=== PATIENT | female | born 1975 | race Caucasian/White ===

== ENCOUNTER → 2016-06-07 | Outpatient (CLI) | payer BC, OTHER ==
--- NOTE | 2016-06-07 11:54 | REPMRS ---
Patient History The patient states she had a clinical breast exam in Family history of breast cancer in mother at age 50. Digital Woman Screen Mammo: June 07, 2016 - Exam #: [id number] Bilateral CC and MLO view(s) were taken. Technologist: Sujata Charlton, Technologist Prior study comparison: June 15, 2015, digital woman screen mammo performed at [facility]. May 28, 2014, digital woman screen mammo performed at [facility]. May 17, 2013, digital woman screen mammo performed at [facility]. FINDINGS: The breast tissue is heterogeneously dense. This may lower the sensitivity of mammography. There is a moderate amount of heterogeneously dense fibroglandular tissue which is fairly symmetric. There is no interval development of dominant mass, architectural distortion, or clustered microcalcification typical of malignancy. There has been no change in the appearance of the mammogram from the prior studies. ASSESSMENT: BI-RADS/ACR category 1 mammogram. Negative. Recommendation Routine screening mammogram of both breasts in 1 year (for women over age 40). This mammogram was interpreted with the aid of an FDA-approved computer-aided dectection system. Electronically Signed By: Dwain Hodge MD 06/07/16 [id number]
== END ==
LOC: M WHC 10:23
PROVIDERS: ATTEND Obstetrics & Gynecology
DX: Z12.31 Encounter for screening mammogram for malignant neoplasm of breast (principal)

== ENCOUNTER → 2017-01-04 | Outpatient (REF) | payer BC, OTHER ==
[~2017-01-04] MED LIST: CYMB1CAP5 PO; HAIRTAB5 PO; HYDR-3716 PO; KETO10TAB PO; LEVOTAB10 PO; MACR100C43 PO; PROBCAP14 PO; ZOFR4TAB3 PO
[2017-01-04 17:38] LABS: CALCIUM LEVEL 8.8 MG/DL (8.5-10.1); URIC ACID 4.6 MG/DL (2.6-6.0)
== END ==
LOC: M LAB REF 10:31
PROVIDERS: ATTEND Urology
DX: N20.0 Calculus of kidney (principal)

== ENCOUNTER → 2017-01-04 | Outpatient (REF) | payer BC, OTHER ==
[2017-01-04 17:48] LABS: ALBUMIN 3.6 GM/DL (3.2-5.2); ALBUMIN/GLOBULIN RATIO 1.03 (1.00-1.93); ALKALINE PHOSPHATASE 92 U/L (45-117); ALT/SGPT 35 U/L (12-78); ANION GAP 10 MEQ/L (8-16); AST/SGOT 21 U/L (15-37); BILIRUBIN,TOTAL 0.3 MG/DL (0.2-1.0); BLOOD UREA NITROGEN 10 MG/DL (7-18); CALCIUM LEVEL 8.6 MG/DL (8.5-10.1); CARBON DIOXIDE LEVEL 25 MEQ/L (21-32); CHLORIDE LEVEL 106 MEQ/L (98-107); CHOLESTEROL LEVEL 270 MG/DL (<200); CREATININE FOR GFR 0.74 MG/DL (0.55-1.02); FREE T4 0.92 NG/DL (0.76-1.46); GLOMERULAR FILTRATION RATE > 60.0 (>58); GLUCOSE, FASTING 94 MG/DL (70-105); POTASSIUM SERUM 4.4 MEQ/L (3.5-5.1); SODIUM LEVEL 141 MEQ/L (136-145); TOTAL PROTEIN 7.1 GM/DL (6.4-8.2); TRIGLYCERIDES LEVEL 127 MG/DL (<150)
== END ==
LOC: M SFHCCLAY 10:19
PROVIDERS: ATTEND Family Medicine
DX: R63.5 Abnormal weight gain (principal)

== ENCOUNTER 2017-01-20 14:35 | Emergency (ER) | payer BC, OTHER ==
[~2017-01-20] VITALS: Ht 167.6 cm; Wt 91.4 kg
[~2017-01-20 14:35] MED LIST changes: -KETO10TAB PO; -ZOFR4TAB3 PO
[2017-01-20] MEDS ORDERED: KETOROLAC 30 MG/ML VIAL (J1885) IV ONE (15:00)
[2017-01-20] MEDS ORDERED: NS 1,000 ML IV ONE (15:00)
[2017-01-20] MEDS ORDERED: MORPHINE 4 MG/ML 1ML SYRINGE IV PRN (15:00)
[2017-01-20] MEDS ORDERED: ONDANSETRON 4MG/2ML VIAL (J2405) IV ONE (15:00)
[2017-01-20 15:23] LABS: BASO % 0.2 % (0.0-1.0); EOS # 0.2 K/mm3 (0.0-0.50); EOS % 1.4 % (0.0-3.0); LARGE UNSTAINED CELL # 0.1 K/mm3 (0.0-0.4); LARGE UNSTAINED CELL % 1.1 % (0.0-4.0); LYMPH # 1.6 K/mm3 (1.5-4.5); LYMPH % 13.6 % (24.0-44.0); MEAN CORPUSCULAR VOLUME 91.5 fl (80.0-96.0); MONO # 0.5 K/mm3 (0.0-0.8); NEUTROPHILS # 9.4 K/mm3 (1.8-7.7); NEUTROPHILS % 79.6 % (36.0-66.0); PLATELET COUNT, AUTOMATED 394 k/mm3 (150-450); RED CELL DISTRIBUTION WIDTH 12.6 % (11.5-14.5); WHITE BLOOD COUNT 11.8 K/mm3 (4.0-10.0)
[2017-01-20 15:47] LABS: ALBUMIN/GLOBULIN RATIO 1.11 (1.00-1.93); ALKALINE PHOSPHATASE 110 U/L (45-117); ALT/SGPT 30 U/L (12-78); ANION GAP 10 MEQ/L (8-16); AST/SGOT 20 U/L (15-37); BILIRUBIN,DIRECT 0.1 MG/DL (0.0-0.2); BILIRUBIN,TOTAL 0.4 MG/DL (0.2-1.0); BLOOD UREA NITROGEN 13 MG/DL (7-18); CALCIUM LEVEL 8.9 MG/DL (8.5-10.1); CARBON DIOXIDE LEVEL 21 MEQ/L (21-32); CHLORIDE LEVEL 108 MEQ/L (98-107); CREATININE FOR GFR 0.81 MG/DL (0.55-1.02); GLOMERULAR FILTRATION RATE > 60.0 (>58); GLUCOSE, FASTING 129 MG/DL (70-105); POTASSIUM SERUM 4.1 MEQ/L (3.5-5.1); SODIUM LEVEL 139 MEQ/L (136-145); TOTAL PROTEIN 7.6 GM/DL (6.4-8.2)
--- NOTE | 2017-01-20 15:55 | REP ---
CT of the abdomen pelvis without IV and oral contrast: Comparison is 10/22/2016. 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 Within this extrarenal pelvis. There is a 12 mm calculus. These findings are unchanged. There is mild left renal hydronephrosis. This is also unchanged. There is no dilatation of the left ureter. There are least three other nonobstructive left renal calculi, each measuring approximate 5 mm in diameter. There was only one other nonobstructive left renal calculus previously. There are no right renal calculi. There is no right hydronephrosis. The right ureter is nondilated. The visualized lung [place] are unremarkable. The unenhanced hepatic parenchyma, gallbladder, pancreas and spleen are unremarkable. The abdominal aorta, bowel and mesentery are unremarkable. Pelvis: There is a hysterectomy. There is a surgical clip in the midline of the vaginal stump. This is unchanged. The adnexa are unremarkable. There are no bladder calculi. There is no adenopathy or ascites. The pelvic bowel loops are unremarkable. Impression: There is a 12 mm calculus within the left renal pelvis. 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 There are least three other nonobstructive left renal calculi measuring approximate 5 mm in diameter each. There is mild left hydronephrosis. This is unchanged. No calculus or hydronephrosis on the right. Signed by Joseph Mcclendon MD 01/20/2017 03:47 P
[2017-01-20] MEDS ORDERED: KETO10TAB PO (17:24)
[2017-01-20] MEDS ORDERED: ZOFR4TAB3 PO (17:24)
[2017-01-20 17:47] VITALS: BP 130/92
== END 2017-01-20 17:48 | disposition home or self-care (01) ==
LOC: M ED 14:35
DX: N20.1 Calculus of ureter (principal); Z87.442 Personal history of urinary calculi; Z88.1 Allergy status to other antibiotic agents; Z88.2 Allergy status to sulfonamides
CPT/HCPCS: 74176; 80048; 80076; 81001; 83690; 85025; 96361; 96374; 96375; 99283; J1885; J2405

== ENCOUNTER → 2017-02-15 | Outpatient (CLI) | payer BC, OTHER ==
[~2017-02-15] MED LIST changes: +KETO10TAB PO; +ZOFR4TAB3 PO
--- NOTE | 2017-02-15 10:38 | REP ---
ULTRASOUND LEFT AXILLA: Real-time sonographic evaluation of the left axilla is performed prior to a scheduled biopsy of a nodule previously identified at an outside institution. At the site of the palpable abnormality in the left axilla, where there is also pain, no cystic or solid nodule is visualized. The biopsy is not performed. Signed by Joseph Jones MD 02/15/2017 01:01 P
== END ==
LOC: M RADPRO 09:05
PROVIDERS: ATTEND Surgery
DX: R22.9 Localized swelling, mass and lump, unspecified (principal); Z88.8 Allergy status to other drugs, medicaments and biological substances; Z88.2 Allergy status to sulfonamides; Z96.89 Presence of other specified functional implants; Z79.899 Other long term (current) drug therapy

== ENCOUNTER → 2017-03-30 | Outpatient (REF) | payer BC, OTHER | LOC: M LAB REF 18:57 | PROVIDERS: ATTEND Surgery | DX: D17.1 Benign lipomatous neoplasm of skin and subcutaneous tissue of trunk (principal) ==

== ENCOUNTER → 2017-05-05 | Outpatient (CLI) | payer BC, OTHER ==
[2017-05-05 17:14] LABS: BASO % 0.3 % (0.0-1.0); EOS # 0.1 10^3/uL (0.0-0.50); EOS % 1.3 % (0.0-3.0); HEMATOCRIT 42.3 % (36.0-47.0); HEMOGLOBIN 13.7 g/dl (12.0-16.0); IMMATURE GRANULOCYTE % 0.3 % (0-0); LYMPH # 2.3 10^3/uL (1.5-4.5); LYMPH % 22.6 % (24.0-44.0); MEAN CORPUSCULAR HEMOGLOBIN 29.5 pg (27.0-33.0); MEAN CORPUSCULAR HGB CONC 32.4 g/dl (32.0-36.5); MEAN CORPUSCULAR VOLUME 91.2 fl (80.0-96.0); MONO # 0.6 10^3/uL (0.0-0.8); MONO % 6.2 % (0.0-5.0); NEUTROPHILS # 6.9 10^3/uL (1.8-7.7); NEUTROPHILS % 69.3 % (36.0-66.0); PLATELET COUNT, AUTOMATED 328 10^3/uL (150-450); RED BLOOD COUNT 4.64 10^6/uL (4.00-5.40); RED CELL DISTRIBUTION WIDTH 13.5 % (11.5-14.5)
[2017-05-05 18:32] LABS: ANION GAP 9 MEQ/L (8-16); BLOOD UREA NITROGEN 17 MG/DL (7-18); CALCIUM LEVEL 8.5 MG/DL (8.5-10.1); CARBON DIOXIDE LEVEL 23 MEQ/L (21-32); CHLORIDE LEVEL 108 MEQ/L (98-107); CREATININE FOR GFR 0.91 MG/DL (0.55-1.02); GLOMERULAR FILTRATION RATE > 60.0 (>58); GLUCOSE, FASTING 90 MG/DL (70-105); POTASSIUM SERUM 4.5 MEQ/L (3.5-5.1); SODIUM LEVEL 140 MEQ/L (136-145)
[2017-05-05 19:20] LABS: AMORPHOUS SEDIMENT LARGE (NEGATIVE); APPEARANCE, URINE TURBID (CLEAR); BACTERIA, URINE AUTO 1+ (NEGATIVE); BILIRUBIN, URINE AUTO NEGATIVE (NEGATIVE); BLOOD, URINE BLOOD 3+ (NEGATIVE); COLOR, URINE YELLOW (YELLOW); GLUCOSE, URINE (UA) AUTO NEGATIVE (NEGATIVE); KETONE, URINE AUTO NEGATIVE (NEGATIVE); LEUKOCYTE ESTERASE, URINE AUTO 1+ (NEGATIVE); MUCUS, URINE SMALL (NEGATIVE); NITRITE, URINE AUTO NEGATIVE (NEGATIVE); PROTEIN, URINE AUTO 1+ mg/dL (NEGATIVE); RBC, URINE AUTO 83 /HPF (0-3); SPECIFIC GRAVITY URINE AUTO 1.025 (1.002-1.035); SQUAMOUS EPITHELIAL CELL UR AU 2 /HPF (0-6); UROBILINOGEN, URINE AUTO 0.2 mg/dL (0.0-2.0); WBC, URINE AUTO 26 /HPF (0-3)
== END ==
LOC: M WUC 14:18
DX: R82.99 Other abnormal findings in urine (principal); R79.9 Abnormal finding of blood chemistry, unspecified
CPT/HCPCS: 80048

== ENCOUNTER → 2017-05-05 | Outpatient (CLI) | payer BC, OTHER | LOC: M WUC 14:22 | DX: N20.0 Calculus of kidney (principal) | CPT/HCPCS: 74018 ==

== ENCOUNTER → 2017-05-31 | Outpatient (CLI) | payer BC, OTHER | LOC: M WUC 11:26 | DX: N20.0 Calculus of kidney (principal) ==

== ENCOUNTER → 2017-07-06 | Outpatient (CLI) | payer BC | LOC: M WHC 15:19 | DX: Z12.31 Encounter for screening mammogram for malignant neoplasm of breast (principal); R92.8 Other abnormal and inconclusive findings on diagnostic imaging of breast; Z80.3 Family history of malignant neoplasm of breast; Z98.890 Other specified postprocedural states | CPT/HCPCS: 77067 ==

== ENCOUNTER → 2018-01-03 | Outpatient (CLI) | payer BC | LOC: M WUC 10:22 | DX: N20.0 Calculus of kidney (principal) | CPT/HCPCS: 74018 ==

== ENCOUNTER → 2018-01-24 | Outpatient (CLI) | payer BC | LOC: M WUC 16:00 | DX: N20.0 Calculus of kidney (principal) | CPT/HCPCS: 74018 ==

== ENCOUNTER → 2018-03-15 | Outpatient (CLI) | payer BC ==
[2018-03-15 20:25] LABS: ANION GAP 9 MEQ/L (8-16); BLOOD UREA NITROGEN 14 MG/DL (7-18); CALCIUM LEVEL 8.9 MG/DL (8.5-10.1); CARBON DIOXIDE LEVEL 28 MEQ/L (21-32); CHLORIDE LEVEL 103 MEQ/L (98-107); CREATININE FOR GFR 0.89 MG/DL (0.55-1.30); GLOMERULAR FILTRATION RATE > 60.0 (>58); GLUCOSE, FASTING 92 MG/DL (70-100); POTASSIUM SERUM 3.8 MEQ/L (3.5-5.1); SODIUM LEVEL 140 MEQ/L (136-145)
== END ==
LOC: M WUC 17:50
DX: N20.0 Calculus of kidney (principal)
CPT/HCPCS: 80048

== ENCOUNTER → 2018-07-07 | Outpatient (REF) | payer BC ==
[~2018-07-07] MED LIST changes: +ZOFR4TAB14 PO; -ZOFR4TAB3 PO
== END ==
LOC: M LAB REF 13:19
PROVIDERS: ATTEND Physician Assistant
DX: J02.9 Acute pharyngitis, unspecified (principal)

== ENCOUNTER → 2018-07-10 | Outpatient (CLI) | payer BC ==
--- NOTE | 2018-07-10 20:18 | REPMRS ---
Patient History The patient states she had a clinical breast exam in 06/2018. Family history of breast cancer at age 50 in mother. Benign excisional biopsy of the left breast, March 2017. No Hormone Replacement Therapy Digital Woman Screen Mammo: July 10, 2018 - Exam #: [id number] Bilateral CC and MLO view(s) were taken. Technologist: Marisa Moura, Technologist Prior study comparison: July 06, 2017, digital woman screen mammo performed at [facility]. June 07, 2016, digital woman screen mammo performed at [facility]. FINDINGS: The breast tissue is heterogeneously dense. This may lower the sensitivity of mammography. There has been no change in the appearance of the mammogram from the prior studies. There is a moderate amount of residual fibroglandular tissue which is fairly symmetric. There is no interval development of dominant mass, architectural distortion, or clustered microcalcification typical of malignancy. Scattered lymph nodes are seen in the right axilla. 3-D tomosynthesis shows no additional findings. No significant changes when compared with prior studies. Assessment: BI-RADS/ACR category 2 mammogram. Benign Findings. Recommendation Routine screening mammogram in 1 year (for women over age 40). This mammogram was interpreted with the aid of an FDA-approved computer-aided dectection system. A. Negative x-ray reports should not delay biopsy if a dominant or clinically suspicious mass is present. B. Four to eight percent of cancers are not identified by mammography. C. Adenosis and dense breast may obscure an underlying neoplasm. Electronically Signed By: Cleve Patricio MD 07/10/18 2018
== END ==
LOC: M WHC 16:18
PROVIDERS: ATTEND Obstetrics & Gynecology
DX: Z12.31 Encounter for screening mammogram for malignant neoplasm of breast (principal); Z80.3 Family history of malignant neoplasm of breast; Z86.018 Personal history of other benign neoplasm

== ENCOUNTER → 2018-09-10 | Outpatient (REF) | payer BC ==
[2018-09-10 16:51] LABS: BASO % 0.4 % (0.0-1.0); EOS # 0.1 10^3/uL (0.0-0.50); EOS % 1.5 % (0.0-3.0); HEMATOCRIT 40.4 % (36.0-47.0); HEMOGLOBIN 13.2 g/dl (12.0-15.5); LYMPH # 1.8 10^3/uL (1.5-4.5); LYMPH % 24.9 % (24.0-44.0); MEAN CORPUSCULAR HEMOGLOBIN 30.3 pg (27.0-33.0); MEAN CORPUSCULAR HGB CONC 32.7 g/dl (32.0-36.5); MEAN CORPUSCULAR VOLUME 92.9 fl (80.0-96.0); MONO # 0.5 10^3/uL (0.0-0.8); MONO % 6.6 % (0.0-5.0); NEUTROPHILS # 4.7 10^3/uL (1.8-7.7); NEUTROPHILS % 66.5 % (36.0-66.0); PLATELET COUNT, AUTOMATED 300 10^3/uL (150-450); RED BLOOD COUNT 4.35 10^6/uL (4.00-5.40); WHITE BLOOD COUNT 7.1 10^3/uL (4.0-10.0)
[2018-09-10 18:04] LABS: IMMUNOGLOBULIN G 1100 MG/DL (681-1648); RUBELLA IgG QUALITATIVE IMMUNE (IMMUNE)
[2018-09-10 18:05] LABS: IMMUNOGLOBULIN E < 3.6 IU/ML (<100)
[2018-09-17 14:16] LABS: ANTI TETANUS ANTIBODY 0.52 IU/mL (<0.10); IMMUNOGLOBULIN D 2.28 mg/dL (<14.11); STREP PNEUMO TYPE 1 1.9 ug/mL (>1.3); STREP PNEUMO TYPE 12F 1.1 ug/mL (>1.3); STREP PNEUMO TYPE 14 0.2 ug/mL (>1.3); STREP PNEUMO TYPE 18C 1.6 ug/mL (>1.3); STREP PNEUMO TYPE 19A 0.4 ug/mL (>1.3); STREP PNEUMO TYPE 19F 0.3 ug/mL (>1.3); STREP PNEUMO TYPE 23F >14.4 ug/mL (>1.3); STREP PNEUMO TYPE 3 0.3 ug/mL (>1.3); STREP PNEUMO TYPE 4 0.2 ug/mL (>1.3); STREP PNEUMO TYPE 7F 1.2 ug/mL (>1.3); STREP PNEUMO TYPE 8 0.1 ug/mL (>1.3); STREP PNEUMO TYPE 9N 3.1 ug/mL (>1.3); STREP PNEUMO TYPE 9V 0.7 ug/mL (>1.3)
== END ==
LOC: M LABDRAWC 16:21
PROVIDERS: ATTEND Allergy & Immunology Allergy
DX: J30.89 Other allergic rhinitis (principal); D84.9 Immunodeficiency, unspecified

== ENCOUNTER → 2018-11-08 | Outpatient (REF) | payer BC ==
[2018-11-14 14:07] LABS: STREP PNEUMO TYPE 1 2.5 ug/mL (>1.3); STREP PNEUMO TYPE 12F 2.1 ug/mL (>1.3); STREP PNEUMO TYPE 14 0.3 ug/mL (>1.3); STREP PNEUMO TYPE 18C 2.2 ug/mL (>1.3); STREP PNEUMO TYPE 19A 0.5 ug/mL (>1.3); STREP PNEUMO TYPE 19F 0.3 ug/mL (>1.3); STREP PNEUMO TYPE 23F >14.4 ug/mL (>1.3); STREP PNEUMO TYPE 3 0.4 ug/mL (>1.3); STREP PNEUMO TYPE 4 0.4 ug/mL (>1.3); STREP PNEUMO TYPE 6B 8.4 ug/mL (>1.3); STREP PNEUMO TYPE 7F 1.3 ug/mL (>1.3); STREP PNEUMO TYPE 8 0.3 ug/mL (>1.3); STREP PNEUMO TYPE 9N 5.9 ug/mL (>1.3)
== END ==
LOC: M LABDRAWC 11:46
PROVIDERS: ATTEND Allergy & Immunology Allergy
DX: D84.9 Immunodeficiency, unspecified (principal)

== ENCOUNTER → 2018-12-05 | Outpatient (CLI) | payer BC ==
--- NOTE | 2018-12-05 16:58 | REP ---
MAXILLOFACIAL CT WITHOUT CONTRAST: HISTORY: Sinusitis. The patient is status-post bilateral uncinectomy and bilateral partial ethmoidectomy. The sinuses are clear. The middle and inferior nasal turbinates are partially paradoxical. There is minimal deviation of the nasal septum to the left. The cribriform plate, medial mars of the orbits and optic canals are intact. The carotid canals form a segment of the posterolateral mars of the sphenoid sinus. IMPRESSION: 1. Postsurgical change as described above. 2. There is no acute or chronic sinusitis. Electronically Signed by Keo Boland MD 12/05/2018 06:08 P
== END ==
LOC: M RAD 13:24
PROVIDERS: ATTEND Allergy & Immunology Allergy
DX: J30.89 Other allergic rhinitis (principal); D84.9 Immunodeficiency, unspecified

== ENCOUNTER → 2019-01-23 | Outpatient (REF) | payer BC ==
[2019-01-23 17:23] LABS: BASO % 0.3 % (0.0-1.0); EOS # 0.1 10^3/uL (0.0-0.5); EOS % 0.9 % (0.0-3.0); HEMATOCRIT 43.6 % (36.0-47.0); LYMPH % 21.8 % (24.0-44.0); MEAN CORPUSCULAR HEMOGLOBIN 30.6 pg (27.0-33.0); MEAN CORPUSCULAR HGB CONC 32.1 g/dl (32.0-36.5); MEAN CORPUSCULAR VOLUME 95.4 fl (80.0-96.0); MONO # 0.5 10^3/uL (0.0-0.8); MONO % 5.2 % (0.0-5.0); NEUTROPHILS # 6.5 10^3/uL (1.5-8.5); NEUTROPHILS % 71.4 % (36.0-66.0); PLATELET COUNT, AUTOMATED 335 10^3/uL (150-450); RED BLOOD COUNT 4.57 10^6/uL (4.00-5.40)
[2019-01-23 17:27] LABS: ALBUMIN 3.9 GM/DL (3.2-5.2); ALT/SGPT 20 U/L (12-78); BILIRUBIN,TOTAL 0.7 MG/DL (0.2-1.0); BLOOD UREA NITROGEN 11 MG/DL (7-18); CALCIUM LEVEL 9.2 MG/DL (8.5-10.1); CARBON DIOXIDE LEVEL 26 MEQ/L (21-32); CHLORIDE LEVEL 104 MEQ/L (98-107); CHOLESTEROL LEVEL 230 MG/DL (<200); CHOLESTEROL RISK RATIO 4.339 (<5); CREATININE FOR GFR 0.84 MG/DL (0.55-1.30); FREE T4 0.99 NG/DL (0.76-1.46); GLOMERULAR FILTRATION RATE > 60.0 (>58); GLUCOSE, FASTING 103 MG/DL (70-100); HDL CHOLESTEROL 53 MG/DL (>40); LDL CHOLESTEROL 152 MG/DL (<100); NON-HDL-C 177 MG/DL; POTASSIUM SERUM 4.5 MEQ/L (3.5-5.1); SODIUM LEVEL 138 MEQ/L (136-145); TOTAL PROTEIN 7.5 GM/DL (6.4-8.2); TRIGLYCERIDES LEVEL 124 MG/DL (<150)
== END ==
LOC: M SFHCCLAY 10:53
PROVIDERS: ATTEND Nurse Practitioner Family
DX: R63.5 Abnormal weight gain (principal); F32.9 Major depressive disorder, single episode, unspecified; R03.0 Elevated blood-pressure reading, without diagnosis of hypertension

== ENCOUNTER → 2019-07-15 | Outpatient (CLI) | payer BC, OTHER ==
--- NOTE | 2019-07-15 11:23 | REPMRS ---
Patient History The patient states she had a clinical breast exam in 06/2019. Family history of breast cancer at age 50 in mother. Benign excisional biopsy of the left breast, March 2017. No Hormone Replacement Therapy 3D TOMOSYNTHESIS WAS PERFORMED. Digital Woman Screen Mammo: July 15, 2019 - Exam #: [id number] Bilateral CC and MLO view(s) were taken. Technologist: Marisa Moura, Technologist Prior study comparison: July 10, 2018, bilateral digital woman screen mammo performed at [facility]. July 06, 2017, digital woman screen mammo performed at [facility]. FINDINGS: The breast tissue is heterogeneously dense. This may lower the sensitivity of mammography. There has been no change in the appearance of the mammogram from the prior studies. There is a moderate amount of residual fibroglandular tissue which is fairly symmetric. There is no interval development of dominant mass, areas of architectural distortion, or clustered microcalcification typical of malignancy. Assessment: BI-RADS/ACR category 1 mammogram. Negative Mammogram. Recommendation Routine screening mammogram in 1 year (for women over age 40). This mammogram was interpreted with the aid of an FDA-approved computer-aided dectection system. THE LIFETIME RISK OF BREAST CANCER IS 20.4%, THEREFORE SUPPLEMENTAL SCREENING MRI OF THE BREASTS IS RECOMMENDED IN 6 MONTHS. Electronically Signed By: Joseph Jones MD 07/15/19 [id number]
== END ==
LOC: M WHC 09:48
PROVIDERS: ATTEND Nurse Practitioner Women's Health
DX: Z12.31 Encounter for screening mammogram for malignant neoplasm of breast (principal); Z80.3 Family history of malignant neoplasm of breast

== ENCOUNTER → 2019-07-15 | Outpatient (CLI) | payer BC, OTHER | LOC: M PLALAB 11:03 | PROVIDERS: ATTEND Nurse Practitioner Women's Health | DX: Z13.79 Encounter for other screening for genetic and chromosomal anomalies (principal); Z80.3 Family history of malignant neoplasm of breast ==

== ENCOUNTER → 2020-01-13 | Outpatient (CLI) | payer BC, OTHER ==
--- NOTE | 2020-01-28 16:32 | REP ---
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 Benign Lipomatous neoplasm of the skin and subcutaneous region. FINDINGS: Bilateral axillary soft tissue sonography shows no evidence of mass, adenopathy, cyst, or fluid collection. IMPRESSION: BI-RADS Category 2 benign bilaterally axillary sonography. Clinical follow-up is advised. DARRELL
== END ==
LOC: M RAD 11:35
PROVIDERS: ATTEND Surgery
DX: N60.22 Fibroadenosis of left breast (principal); D17.1 Benign lipomatous neoplasm of skin and subcutaneous tissue of trunk

== ENCOUNTER → 2020-03-10 | Outpatient (CLI) | payer BC, OTHER ==
[~2020-03-10] MED LIST changes: +PROHANCE 279.3MG/ML 15ML VIAL As Ordered ONE; +PROHANCE 279.3MG/ML 5ML VIAL As Ordered ONE
--- NOTE | 2020-03-10 18:36 | REP ---
INDICATION: LT AXILLARY PAIN H/O RISK, HIGH RISK FOR BREAST CA. COMPARISON: Comparison mammography and axillary sonography July 15, 2019 and January 13, 2020 respectively. TECHNIQUE: Three Magalie MRI imaging was performed with a dedicated breast coil. Axial, coronal, and sagittal T1 and T2 weighted scans were obtained with and without fat saturation in the usual fashion. The study includes dynamically acquired post gadolinium-enhanced imaging with image subtraction. Maximum intensity projection and multi planar reformation imaging is included as well. This study is interpreted with the aid of [employer], an FDA approved computer aided detection (CAD) software program, on a dedicated breast MRI workstation. The gadolinium enhancement dose is 20 mL of intravenous ProHance. FINDINGS: There is a moderate pattern of fibroglandular tissue bilaterally corresponding with the dense breast tissue mammographically. T2 weighted scans show no evidence of axillary lymphadenopathy on either side. There is a moderate pattern of multifocal punctate background parenchymal enhancement bilaterally. There are 2 identifiable cysts in the central left breast. The more posterior of these measures 10 mm and the more anterior 12 mm in greatest diameter. There is no significant contrast enhancement associated with either of these. No other significant morphologic abnormality is seen on high-resolution pre or postcontrast images. Dynamically acquired post contrast images show no suspicious focus of enhancement and washout in either breast to suggest malignancy. IMPRESSION: BI-RADS category 2 benign findings. Patients whose estimated lifetime breast cancer risk is greater than 20% merit annual screening MRI in addition annual screening mammography. <Electronically signed by Dwain Hodge > 03/10/20 [id number]
== END ==
LOC: M RAD 14:43
PROVIDERS: ATTEND Surgery
DX: Z91.89 Other specified personal risk factors, not elsewhere classified (principal)

== ENCOUNTER → 2020-06-29 | Outpatient (REF) | payer BC, OTHER ==
[~2020-06-29] MED LIST changes: +OMEG1CAP16 PO; -PROHANCE 279.3MG/ML 15ML VIAL As Ordered ONE; -PROHANCE 279.3MG/ML 5ML VIAL As Ordered ONE; +TURM500C PO; +VITA250C5 PO; +VITA500030 PO; +VITA500064 PO
[2020-06-29 17:51] LABS: BASO % 0.1 % (0.0-1.0); EOS # 0.1 10^3/uL (0.0-0.5); EOS % 1.3 % (0.0-3.0); HEMATOCRIT 41.3 % (36.0-47.0); HEMOGLOBIN 12.9 g/dl (12.0-15.5); LYMPH # 1.9 10^3/uL (1.5-5.0); LYMPH % 26.8 % (24.0-44.0); MEAN CORPUSCULAR HEMOGLOBIN 29.7 pg (27.0-33.0); MEAN CORPUSCULAR HGB CONC 31.2 g/dl (32.0-36.5); MEAN CORPUSCULAR VOLUME 95.2 fl (80.0-96.0); MONO # 0.4 10^3/uL (0.0-0.8); MONO % 5.8 % (2.0-8.0); NEUTROPHILS # 4.6 10^3/uL (1.5-8.5); NEUTROPHILS % 65.9 % (36.0-66.0); PLATELET COUNT, AUTOMATED 321 10^3/uL (150-450); RED BLOOD COUNT 4.34 10^6/uL (4.00-5.40); WHITE BLOOD COUNT 6.9 10^3/uL (4.0-10.0)
[2020-06-29 18:23] LABS: ALBUMIN 3.9 GM/DL (3.2-5.2); ALT/SGPT 51 U/L (12-78); BILIRUBIN,TOTAL 0.3 MG/DL (0.2-1.0); BLOOD UREA NITROGEN 12 MG/DL (7-18); CALCIUM LEVEL 8.9 MG/DL (8.5-10.1); CARBON DIOXIDE LEVEL 27 MEQ/L (21-32); CHLORIDE LEVEL 107 MEQ/L (98-107); CREATININE FOR GFR 0.86 MG/DL (0.55-1.30); GLOMERULAR FILTRATION RATE > 60.0 (>58); GLUCOSE, FASTING 96 MG/DL (70-100); POTASSIUM SERUM 4.3 MEQ/L (3.5-5.1); SODIUM LEVEL 138 MEQ/L (136-145); TOTAL PROTEIN 7.2 GM/DL (6.4-8.2)
== END ==
LOC: M SFHCCLAY 09:06
PROVIDERS: ATTEND Nurse Practitioner Family
DX: R63.5 Abnormal weight gain (principal); F32.9 Major depressive disorder, single episode, unspecified; Z91.89 Other specified personal risk factors, not elsewhere classified

== ENCOUNTER → 2020-07-02 | Outpatient (CLI) | payer BC, OTHER | LOC: M LABSMTC 10:58 | PROVIDERS: ATTEND Anesthesiology | DX: Z01.812 Encounter for preprocedural laboratory examination (principal); Z20.822 Contact with and (suspected) exposure to COVID-19 ==

== ENCOUNTER 2020-07-07 09:32 | Day surgery (SDC) | payer BC, OTHER ==
[~2020-07-07] VITALS: Ht 167.6 cm; Wt 102.0 kg
[~2020-07-07 09:32] MED LIST changes: +LR 1,000 ML IV ONE; +ceFAZolin SOD 1 GM in D5W MINI-BAG PLUS 50 ML IV ONE
[2020-07-07] MEDS ORDERED: MIDAZOLAM INJ 2MG/2ML VIAL (J2250 PER 1MG) As Ordered ONE (10:08)
[2020-07-07] MEDS ORDERED: LIDOCAINE 2% 100MG/5ML SDV (FOR ANES.) As Ordered ONE (10:08)
[2020-07-07] MEDS ORDERED: fentaNYL 250 MCG/5 ML INJECTION (J3010) As Ordered ONE (10:08)
[2020-07-07] MEDS ORDERED: ROCURONIUM BROMIDE 50 MG/5 ML VIAL As Ordered ONE (10:08)
[2020-07-07] MEDS ORDERED: propofoL 200 MG/20 ML VIAL As Ordered ONE (10:08)
[2020-07-07] MEDS ORDERED: dexameTHASONE 4 MG/ML 1ML VIAL (J1100 PER 1MG) As Ordered ONE (10:08)
[2020-07-07] MEDS ORDERED: BUPIVACAINE LIPOSOME/PF 1.3% 20ML VIAL (13.3MG/ML)(EXPAREL)(C9290 PER1MG) As Ordered ONE (11:49)
[2020-07-07] MEDS ORDERED: BACITRACIN PWD 50,000 UNITS VIAL As Ordered ONE (11:49)
[2020-07-07] MEDS ORDERED: ONDANSETRON 4MG/2ML VIAL As Ordered ONE (12:31)
[2020-07-07] MEDS ORDERED: METOCLOPRAMIDE INJ 10MG/2ML VIAL (J2765 PER 1) As Ordered ONE (12:31)
[2020-07-07] MEDS ORDERED: ACETAMINOPHEN 1000MG 100ML IV BTL (OFIRMEV) (J0131 PER 10MG) As Ordered ONE (13:00)
[2020-07-07] MEDS ORDERED: HYDROmorphone HCL 2 MG/ML 1ML VIAL (J1170) As Ordered ONE (13:07)
--- NOTE | 2020-07-07 13:28 | POST-OPPD ---
Postoperative Procedure Note Date Of Procedure: Jul 07, 2020 PREOPERATIVE DIAGNOSIS: Bilateral accessory breasts POSTOPERATIVE DIAGNOSIS: same FINDINGS: Bilateral accessory breasts. left axillae with old incision. PROCEDURE: Excision of bilateral accessory breasts SURGEON: Dr Viramontes ANESTHESIA: General SPECIMENS: Right and Left accessory breast tissue ESTIMATED BLOOD LOSS: 10 cc REPLACED: none DRAINS: none COMPLICATIONS: none POSTOPERATIVE CONDITION: stable JUDY VIRAMONTES DO Jul 07, 2020 13:28
--- NOTE | 2020-07-07 13:28 | ROOPDOC ---
[facility] Report Of Operation Report of Operation DATE OF PROCEDURE: 07/07/20 PREOPERATIVE DIAGNOSIS: Bilateral accessory breasts POSTOPERATIVE DIAGNOSIS: same FINDINGS: Bilateral accessory breasts. left axillae with old incision. PROCEDURE: Excision of bilateral accessory breasts SURGEON: Dr Viramontes ANESTHESIA: General SPECIMENS: Right and Left accessory breast tissue ESTIMATED BLOOD LOSS: 10 cc REPLACED: none DRAINS: none COMPLICATIONS: none POSTOPERATIVE CONDITION: stable Procedure: This is a 45-year-old female who has bilateral accessory tissue in both axillas. Patient had removal of excess tissue on the left previously, however she still has more tissue that's causing her discomfort. Informed consent obtained from patient. The risks, benefits, and alternatives discussed with the patient in detail. She is ready to proceed. She was marked in upright position in the holding area. Enough tissue was marked in order for her to be able to safely to raise her arms. Patient brought into the operating room, placed in supine position, preoperative antibiotics are given, sequential stockings placed in a lower calves, in general anesthesia is induced. Patient is prepped and draped in the usual sterile fashion. We started our inc ision on the right side in the curvilinear fashion with 2-1/2 cm width of skin for removal. There is significant pad of subcutaneous tissue and breast tissue that's underneath which was removed using electrocautery. Hemostasis is obtained. The wound is irrigated with bacitracin irrigation. Exparel 5 mL was infiltrated for local anesthesia. The wound was closed in layers with 3-0 Vicryl sutures, 3-0 Monocryl and 4-0 Monocryl sutures. Then returned our attention to the left side and mirror procedure was performed. Curvilinear incisions done using 10 blade. One and a half centimeters the width of excised skin which included old scar was done. Moderate pad of subcutaneous tissue and breast tissue that's underneath which was removed using electrocautery. Exparel 5 mL was infiltrated for local anesthesia. The wound was closed in layers with 3-0 Vicryl sutures, 3-0 Monocryl and 4-0 Monocryl sutures. Prinio dressing applied to both incisions. Bulky dressing and surgical bra applied. Patient tolerated procedure well. She was transferred to recovery room in stable condition completely awake. JUDY VIRAMONTES DO Jul 07, 2020 13:28
[2020-07-07] MEDS ORDERED: OXYC1TAB23 PO (13:45)
[2020-07-07] MEDS ORDERED: PERCOCET 5MG/325MG TAB PO PRN (14:00)
[2020-07-07] MEDS ORDERED: ONDANSETRON 4MG/2ML VIAL IV PRN (14:00)
[2020-07-07] MEDS ORDERED: fentaNYL 100 MCG/2 ML INJECTION (J3010) IV PRN (14:00)
[2020-07-07] MEDS ORDERED: METOCLOPRAMIDE INJ 10MG/2ML VIAL (J2765 PER 1) IV PRN (14:00)
[2020-07-07] MEDS ORDERED: LR 1,000 ML IV SCH (14:00)
[2020-07-07 16:20] VITALS: BP 161/75
== END 2020-07-07 16:32 | disposition home or self-care (01) ==
LOC: M SDC 09:32
PROVIDERS: ATTEND Plastic Surgery Surgery of the Hand
DX: Q83.1 Accessory breast (principal)
CPT/HCPCS: 19120; 88305; C9290; J0131; J0690; J1100; J1170; J2250; J2405; J2765; J3010

== ENCOUNTER → 2020-07-20 | Outpatient (CLI) | payer BC, OTHER ==
[~2020-07-20] MED LIST changes: -LR 1,000 ML IV ONE; +OXYC1TAB23 PO; -ceFAZolin SOD 1 GM in D5W MINI-BAG PLUS 50 ML IV ONE
--- NOTE | 2020-07-20 10:55 | REP ---
INDICATION: RT KNEE SWELLING,PAIN COMPARISON: None. TECHNIQUE: Five views. FINDINGS: There is no fracture or dislocation. There is no effusion. Mineralization and joint spaces are normal. There are no calcifications or foreign bodies. IMPRESSION: Negative right knee.. <Electronically signed by Joseph Mcclendon > 07/20/20 1056
== END ==
LOC: M CLY 10:20
PROVIDERS: ATTEND Physician Assistant
DX: M25.461 Effusion, right knee (principal)

== ENCOUNTER → 2020-09-01 | Outpatient (REF) | payer BC, OTHER ==
[2020-09-01 14:10] LABS: ALT/SGPT 21 U/L (12-78); BILIRUBIN,TOTAL 0.5 MG/DL (0.2-1.0); BLOOD UREA NITROGEN 12 MG/DL (7-18); CALCIUM LEVEL 9.2 MG/DL (8.5-10.1); CARBON DIOXIDE LEVEL 29 MEQ/L (21-32); CHLORIDE LEVEL 105 MEQ/L (98-107); CHOLESTEROL LEVEL 230 MG/DL (<200); CHOLESTEROL RISK RATIO 4.423 (<5); CREATININE FOR GFR 0.78 MG/DL (0.55-1.30); FREE T4 1.21 NG/DL (0.76-1.46); GLOMERULAR FILTRATION RATE > 60.0 (>58); GLUCOSE, FASTING 83 MG/DL (70-100); HDL CHOLESTEROL 52 MG/DL (>40); LDL CHOLESTEROL 155 MG/DL (<100); NON-HDL-C 178 MG/DL; SODIUM LEVEL 140 MEQ/L (136-145); TOTAL PROTEIN 7.3 GM/DL (6.4-8.2); TRIGLYCERIDES LEVEL 115 MG/DL (<150)
== END ==
LOC: M SFHCCLAY 07:31
PROVIDERS: ATTEND Nurse Practitioner Family
DX: R03.0 Elevated blood-pressure reading, without diagnosis of hypertension (principal)

== ENCOUNTER → 2020-09-10 | Outpatient (CLI) | payer BC, OTHER ==
--- NOTE | 2020-09-10 10:38 | REP ---
INDICATION: ASSESS INTERNAL DERANGEMENT, LIKELY MENISCAL TEAR. COMPARISON: Radiographs 07/20/2020. TECHNIQUE: Multiple sequences obtained in the axial, coronal and sagittal planes. FINDINGS: Menisci: Intact, no tear. Cruciate ligaments: Intact. Collateral ligaments: Intact. Extensor mechanism/patellar retinacula: Intact. Cartilage: There is moderate chondromalacia of the medial femoral condyle and tibial plateau. There is mild to moderate chondromalacia diffusely of the patella. Bone marrow: Normal signal, no edema or occult fracture. Joint fluid: There is a small joint effusion. Popliteal region: No cyst. 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 Small joint effusion. No evidence of internal derangement. <Electronically signed by Joseph Jones > 09/10/20 [id number]
== END ==
LOC: M PLARAD 08:17
PROVIDERS: ATTEND Orthopaedic Surgery Adult Reconstructive Orthopaedic Surgery
DX: M94.261 Chondromalacia, right knee (principal); M25.461 Effusion, right knee; S83.241D Other tear of medial meniscus, current injury, right knee, subsequent encounter

== ENCOUNTER → 2020-09-24 | Outpatient (REF) | payer BC, OTHER | LOC: M SFHCWAGY 12:49 | PROVIDERS: ATTEND Nurse Practitioner Women's Health | DX: Z12.4 Encounter for screening for malignant neoplasm of cervix (principal) | CPT/HCPCS: 87624; G0123 ==

== ENCOUNTER → 2020-09-24 | Outpatient (CLI) | payer BC, OTHER ==
--- NOTE | 2020-09-24 11:06 | REPMRS ---
Patient History The patient states she had a clinical breast exam in August 2020. Family history of breast cancer at age 50 in mother. Benign excisional biopsy of the left breast, March 2017. No Hormone Replacement Therapy Patient had excess breast tissue removed from both axilla 06/09/20 with pronounced scarring No breast complaints today Patient signed the MRS sheet 1st covid vaccine 07/12/20-right arm-Pfizer 2nd covid vaccine 08/02/20-right arm Patient states she has had a 20lb intentional weight loss since her last mammo [facility] on PACS Patient Identification Verified Digital Woman Screen Mammo: September 24, 2020 - Exam #: [id number] Bilateral CC and MLO view(s) were taken. Technologist: Paris Carr, Technologist Prior study comparison: July 15, 2019, bilateral digital woman screen mammo performed at [facility]. July 10, 2018, bilateral digital woman screen mammo performed at [facility]. July 06, 2017, digital woman screen mammo performed at [facility]. FINDINGS: There are scattered fibroglandular densities. The Volpara volumetric breast density category is:B. There is a possible 9 mm nodular pat density in the left breast at approximately the 11 o'clock position seen with confidence only on the CC view. This merits further evaluation. There has been no other change in the appearance of the mammogram from the prior studies. There is a mild amount of scattered fibroglandular density which is fairly symmetric. There is no other interval development of dominant mass, architectural distortion, or grouped microcalcification suggestive of malignancy. 3-D tomosynthesis shows no additional findings. Assessment: BI-RADS/ACR category 0 mammogram, Incomplete: Need additional imaging evaluation and/or prior mammograms for comparison. Recommendation Ultrasound and special view mammogram of the left breast. [facility] Lifetime Breast Cancer Risk is estimated at 20.2 %. Patients whose estimated lifetime breast cancer risk assessment is greater than 20% merit annual screening breast MRI scanning in addition to annual mammography. This mammogram was interpreted with the aid of an FDA-approved computer-aided dectection system. Breast MRI of both breasts in 6 months. Electronically Signed By: Dwain Hodge MD 09/24/20 [id number]
== END ==
LOC: M WHC 09:32
PROVIDERS: ATTEND Nurse Practitioner Women's Health
DX: Z12.31 Encounter for screening mammogram for malignant neoplasm of breast (principal); Z91.89 Other specified personal risk factors, not elsewhere classified; Z80.3 Family history of malignant neoplasm of breast; Z86.018 Personal history of other benign neoplasm; N63.22 Unspecified lump in the left breast, upper inner quadrant

== ENCOUNTER → 2020-10-12 | Outpatient (CLI) | payer BC, OTHER ==
--- NOTE | 2020-10-12 13:36 | REP ---
INDICATION: ADDITIONAL VIEWS LT BREAST. COMPARISON: Multiple the latest prior screening examination of 09/24/2020 showed a potential pat density in the left breast at the 12 o'clock position. TECHNIQUE: Diagnostic digital magnified spot compression views left breast CC and MLO projections FINDINGS: The subtle potential pat density seen in left breast at the 12 o'clock position compresses out to normal breast parenchyma. There are no abnormal pat densities noted. There are no suspicious calcifications. IMPRESSION: BIRADS/ACR category 2 negative mammogram. There is no evidence of malignant alteration of the left breast.. The patient letter being requested is M1. RECOMMENDATION: Repeat screening mammography recommended 1 year (for women over 40). <Electronically signed by Ramón Estrada > 10/12/20 [id number]
== END ==
LOC: M WHC 12:56
PROVIDERS: ATTEND Nurse Practitioner Women's Health
DX: Z12.31 Encounter for screening mammogram for malignant neoplasm of breast (principal)

== ENCOUNTER → 2021-02-11 | Outpatient (CLI) | payer BC ==
[~2021-02-11] MED LIST changes: +PROHANCE 279.3MG/ML 15ML VIAL As Ordered ONE; +PROHANCE 279.3MG/ML 5ML VIAL As Ordered ONE
--- NOTE | 2021-02-12 08:46 | REP ---
INDICATION: HIGH RISK BREAST CA. COMPARISON: 03/10/2020, mammogram there is 11/17/2020 as well as other prior exams. TECHNIQUE: Three Magalie MRI imaging was performed with a dedicated breast coil. Axial, coronal, and sagittal T1 and T2 weighted scans were obtained with and without fat saturation in the usual fashion. The study includes dynamically acquired post gadolinium-enhanced imaging with image subtraction. Maximum intensity projection and multi planar reformation imaging is included as well. This study is interpreted with the aid of [employer], an FDA approved computer aided detection (CAD) software program, on a dedicated breast MRI workstation. The gadolinium enhancement dose is 19 mL of intravenous ProHance. FINDINGS: There is moderate fibroglandular tissue bilaterally. There is a subcentimeter cyst in the lateral right breast. There is a 1 cm cyst in the upper outer quadrant of the left breast. A subcentimeter cyst is seen inferiorly in the left breast. There is no axillary adenopathy. There is moderate background parenchymal enhancement. There is no suspicious enhancing mass or morphologic abnormality. IMPRESSION: BI-RADS category 2 benign bilateral breast MRI. Small cysts are visualized in the breasts. There is no suspicious enhancing mass or morphologic abnormality. <Electronically signed by Joseph Jones > 02/12/21 [id number]
== END ==
LOC: M RAD 16:32
PROVIDERS: ATTEND Surgery
DX: Z91.89 Other specified personal risk factors, not elsewhere classified (principal); N60.01 Solitary cyst of right breast; N60.02 Solitary cyst of left breast
CPT/HCPCS: A9576; C8908

== ENCOUNTER → 2021-09-09 | Outpatient (CLI) | payer BC, OTHER ==
[~2021-09-09] MED LIST changes: -PROHANCE 279.3MG/ML 15ML VIAL As Ordered ONE; -PROHANCE 279.3MG/ML 5ML VIAL As Ordered ONE
== END ==
LOC: M SOG 09:46
PROVIDERS: ATTEND Orthopaedic Surgery Adult Reconstructive Orthopaedic Surgery
DX: M94.261 Chondromalacia, right knee (principal)

== ENCOUNTER → 2021-09-28 | Outpatient (CLI) | payer BC | LOC: M WHC 13:36 | PROVIDERS: ATTEND Nurse Practitioner Women's Health | DX: Z12.31 Encounter for screening mammogram for malignant neoplasm of breast (principal); Z80.3 Family history of malignant neoplasm of breast ==

== ENCOUNTER → 2022-02-17 | Outpatient (REF) | payer BC ==
[2022-02-17 17:42] LABS: BASO % 0.4 % (0.0-1.0); EOS # 0.1 10^3/uL (0.0-0.5); EOS % 1.1 % (0.0-3.0); HEMATOCRIT 43.7 % (36.0-47.0); HEMOGLOBIN 14.3 g/dl (12.0-15.5); LYMPH # 2.1 10^3/uL (1.5-5.0); LYMPH % 29.1 % (24.0-44.0); MEAN CORPUSCULAR HEMOGLOBIN 30.9 pg (27.0-33.0); MEAN CORPUSCULAR HGB CONC 32.7 g/dl (32.0-36.5); MEAN CORPUSCULAR VOLUME 94.4 fl (80.0-96.0); MONO # 0.5 10^3/uL (0.0-0.8); MONO % 7.3 % (2.0-8.0); NEUTROPHILS # 4.5 10^3/uL (1.5-8.5); PLATELET COUNT, AUTOMATED 334 10^3/uL (150-450); RED BLOOD COUNT 4.63 10^6/uL (4.00-5.40); WHITE BLOOD COUNT 7.2 10^3/uL (4.0-10.0)
[2022-02-17 19:20] LABS: BLOOD UREA NITROGEN 11 MG/DL (7-18); CREATININE FOR GFR 0.84 MG/DL (0.55-1.30); GLOMERULAR FILTRATION RATE > 60.0 (>58); GLUCOSE, FASTING 84 MG/DL (70-100); POTASSIUM SERUM 4.7 MEQ/L (3.5-5.1); SODIUM LEVEL 136 MEQ/L (136-145)
[2022-02-17 19:21] LABS: ALT/SGPT 34 U/L (12-78); BILIRUBIN,TOTAL 0.4 MG/DL (0.2-1.0); C REACTIVE PROTEIN QUANTITATIV 1.11 MG/DL (0.00-0.30); CALCIUM LEVEL 9.4 MG/DL (8.5-10.1); CARBON DIOXIDE LEVEL 28 MEQ/L (21-32); CHLORIDE LEVEL 104 MEQ/L (98-107); RHEUMATOID FACTOR QUANT < 10.0 IU/ML (<15.0); TOTAL PROTEIN 7.4 GM/DL (6.4-8.2); URIC ACID 4.7 MG/DL (2.6-6.0)
== END ==
LOC: M SFHCCLAY 11:17
PROVIDERS: ATTEND Nurse Practitioner Family
DX: M25.50 Pain in unspecified joint (principal)

== ENCOUNTER → 2022-03-04 | Outpatient (CLI) | payer BC ==
[~2022-03-04] MED LIST changes: +PROHANCE 279.3MG/ML 15ML VIAL As Ordered ONE; +PROHANCE 279.3MG/ML 5ML VIAL As Ordered ONE
== END ==
LOC: M RAD 14:25
PROVIDERS: ATTEND Nurse Practitioner Women's Health
DX: R92.2 Inconclusive mammogram (principal); Z91.89 Other specified personal risk factors, not elsewhere classified
CPT/HCPCS: A9576; C8908

== ENCOUNTER → 2022-11-07 | Outpatient (CLI) | payer BC ==
[~2022-11-07] MED LIST changes: -PROHANCE 279.3MG/ML 15ML VIAL As Ordered ONE; -PROHANCE 279.3MG/ML 5ML VIAL As Ordered ONE; -VITA500064 PO; +VITA500065 PO
== END ==
LOC: M WHC 10:21
PROVIDERS: ATTEND Obstetrics & Gynecology
DX: R92.2 Inconclusive mammogram (principal); Z91.89 Other specified personal risk factors, not elsewhere classified; Z80.3 Family history of malignant neoplasm of breast

== ENCOUNTER → 2023-04-07 | Outpatient (CLI) | payer BC | LOC: M RAD 08:43 | PROVIDERS: ATTEND Nurse Practitioner Family | DX: N20.0 Calculus of kidney (principal) ==

== ENCOUNTER 2023-04-19 13:36 | Emergency (ER) | payer BC ==
[~2023-04-19] VITALS: Ht 167.6 cm; Wt 98.8 kg
[2023-04-19] MEDS ORDERED: FLUO10CA18 PO (15:02)
[2023-04-19] MEDS ORDERED: diphenhydrAMINE 50MG/ML VIAL IV ONE (15:15)
[2023-04-19] MEDS ORDERED: NS 1,000 ML IV ONE (15:15)
[2023-04-19] MEDS ORDERED: METOCLOPRAMIDE INJ 10MG/2ML VIAL IV ONE (15:15)
[2023-04-19] MEDS ORDERED: dexAMETHasone 20MG/5ML VIAL IV ONE (15:15)
[2023-04-19 16:30] VITALS: TEMP 98.4; O2SAT 100
[2023-04-19 17:18] LABS: BASO % 0.2 % (0.0-1.0); EOS % 0.3 % (0.0-3.0); HEMATOCRIT 42.3 % (36.0-47.0); HEMOGLOBIN 13.7 g/dl (12.0-15.5); LYMPH # 1.2 10^3/uL (1.5-5.0); LYMPH % 13.3 % (24.0-44.0); MEAN CORPUSCULAR HGB CONC 32.4 g/dl (32.0-36.5); MEAN CORPUSCULAR VOLUME 92.6 fl (80.0-96.0); MONO # 0.3 10^3/uL (0.0-0.8); NEUTROPHILS # 7.4 10^3/uL (1.5-8.5); NEUTROPHILS % 82.9 % (36.0-66.0); PLATELET COUNT, AUTOMATED 331 10^3/uL (150-450); RED BLOOD COUNT 4.57 10^6/uL (4.00-5.40)
[2023-04-19 18:18] VITALS: BP 140/90
[2023-04-19] MEDS ORDERED: KETOROLAC 30 MG/ML 1ML VIAL IV ONE (18:20)
== END 2023-04-19 20:00 | disposition home or self-care (01) ==
LOC: M ED 13:36
DX: F07.81 Postconcussional syndrome (principal); R03.0 Elevated blood-pressure reading, without diagnosis of hypertension; G43.909 Migraine, unspecified, not intractable, without status migrainosus; Z87.442 Personal history of urinary calculi; Z79.899 Other long term (current) drug therapy; Z88.2 Allergy status to sulfonamides
CPT/HCPCS: 70450; 71046; 80047; 81001; 85025; 93005; 96361; 96374; 96375; 99284; J1100; J1200; J1885; J2765

== ENCOUNTER → 2023-05-12 | Outpatient (CLI) | payer BC ==
[~2023-05-12] MED LIST changes: +FLUO10CA18 PO; +PROHANCE 279.3MG/ML 15ML VIAL ONE; +PROHANCE 279.3MG/ML 5ML VIAL ONE
== END ==
LOC: M PLAIMG 10:02
PROVIDERS: ATTEND Nurse Practitioner Women's Health
DX: R92.8 Other abnormal and inconclusive findings on diagnostic imaging of breast (principal); Z80.3 Family history of malignant neoplasm of breast; Z91.89 Other specified personal risk factors, not elsewhere classified
CPT/HCPCS: A9576; C8908

== ENCOUNTER → 2023-06-07 | Outpatient (REF) | payer BC ==
[~2023-06-07] MED LIST changes: -PROHANCE 279.3MG/ML 15ML VIAL ONE; -PROHANCE 279.3MG/ML 5ML VIAL ONE
[2023-06-07 16:45] LABS: BASO % 0.4 % (0.0-1.0); EOS # 0.1 10^3/uL (0.0-0.5); EOS % 1.2 % (0.0-3.0); HEMATOCRIT 36.7 % (36.0-47.0); HEMOGLOBIN 11.9 g/dl (12.0-15.5); LYMPH % 26.3 % (24.0-44.0); MEAN CORPUSCULAR HEMOGLOBIN 30.3 pg (27.0-33.0); MEAN CORPUSCULAR HGB CONC 32.4 g/dl (32.0-36.5); MEAN CORPUSCULAR VOLUME 93.4 fl (80.0-96.0); MONO # 0.5 10^3/uL (0.0-0.8); MONO % 6.1 % (2.0-8.0); NEUTROPHILS % 65.6 % (36.0-66.0); PLATELET COUNT, AUTOMATED 299 10^3/uL (150-450); RED BLOOD COUNT 3.93 10^6/uL (4.00-5.40); WHITE BLOOD COUNT 7.7 10^3/uL (4.0-10.0)
[2023-06-07 17:10] LABS: ALBUMIN 3.7 G/DL (3.2-5.2); ALKALINE PHOSPHATASE 87 U/L (46-116); ALT/SGPT 30 U/L (7.0-40); AST/SGOT 20 U/L (<34); BILIRUBIN,TOTAL 0.3 MG/DL (0.3-1.2); BLOOD UREA NITROGEN 12 MG/DL (9-23); CALCIUM LEVEL 8.9 MG/DL (8.5-10.1); CARBON DIOXIDE LEVEL 27 MMOL/L (20-31); CHLORIDE LEVEL 108 MMOL/L (98-107); CREATININE FOR GFR 0.81 MG/DL (0.55-1.30); GLOMERULAR FILTRATION RATE > 60.0 (>58); GLUCOSE, FASTING 91 MG/DL (60-100); POTASSIUM SERUM 4.4 MMOL/L (3.5-5.1); SODIUM LEVEL 141 MMOL/L (136-145); TOTAL PROTEIN 6.5 G/DL (5.7-8.2)
[2023-06-07 17:12] LABS: THYROID STIMULATING HORMONE 2.243 uIU/ML (0.55-4.78)
== END ==
LOC: M SFHCCLAY 14:17
PROVIDERS: ATTEND Physician Assistant
DX: R60.0 Localized edema (principal)

== ENCOUNTER → 2023-06-16 | Outpatient (REF) | payer BC ==
[2023-06-16 18:33] LABS: FREE T4 1.07 NG/DL (0.89-1.76)
[2023-06-16 18:34] LABS: THYROID STIMULATING HORMONE 1.881 uIU/ML (0.55-4.78)
== END ==
LOC: M LABDRAWC 17:27
PROVIDERS: ATTEND Internal Medicine Cardiovascular Disease
DX: R73.09 Other abnormal glucose (principal)

== ENCOUNTER → 2023-11-10 | Outpatient (CLI) | payer BC ==
[~2023-11-10] MED LIST changes: +FLUO-290 PO; -FLUO10CA18 PO
== END ==
LOC: M WHC 15:29
PROVIDERS: ATTEND Nurse Practitioner Family
DX: Z12.31 Encounter for screening mammogram for malignant neoplasm of breast (principal)

== ENCOUNTER → 2023-11-10 | Outpatient (REF) | payer BC ==
[2023-11-14 13:58] LABS: HPV APTIMA Not Detected (Not Detected)
== END ==
LOC: M SFHCWAGY 17:14
PROVIDERS: ATTEND Nurse Practitioner Family
DX: Z12.4 Encounter for screening for malignant neoplasm of cervix (principal); R87.5 Abnormal microbiological findings in specimens from female genital organs
CPT/HCPCS: 87624; G0123

== ENCOUNTER → 2023-12-26 | Outpatient (REF) | payer BC ==
[2023-12-26 17:44] LABS: BASO % 0.3 % (0.0-1.0); EOS # 0.2 10^3/uL (0.0-0.5); EOS % 1.9 % (0.0-3.0); HEMATOCRIT 43.1 % (36.0-47.0); HEMOGLOBIN 13.8 g/dl (12.0-15.5); LYMPH # 2.1 10^3/uL (1.5-5.0); LYMPH % 22.5 % (24.0-44.0); MEAN CORPUSCULAR HEMOGLOBIN 30.5 pg (27.0-33.0); MEAN CORPUSCULAR VOLUME 95.1 fl (80.0-96.0); MONO # 0.5 10^3/uL (0.0-0.8); MONO % 5.5 % (2.0-8.0); NEUTROPHILS # 6.4 10^3/uL (1.5-8.5); NEUTROPHILS % 69.3 % (36.0-66.0); PLATELET COUNT, AUTOMATED 376 10^3/uL (150-450); RED BLOOD COUNT 4.53 10^6/uL (4.00-5.40); WHITE BLOOD COUNT 9.2 10^3/uL (4.0-10.0)
[2023-12-26 17:59] LABS: ALKALINE PHOSPHATASE 122 U/L (46-116); ALT/SGPT 38 U/L (7.0-40); AST/SGOT 24 U/L (<34); BILIRUBIN,TOTAL 0.5 MG/DL (0.3-1.2); BLOOD UREA NITROGEN 11 MG/DL (9-23); CALCIUM LEVEL 9.7 MG/DL (8.5-10.1); CARBON DIOXIDE LEVEL 31 MMOL/L (20-31); CHLORIDE LEVEL 105 MMOL/L (98-107); CHOLESTEROL LEVEL 265 MG/DL (<200); CHOLESTEROL RISK RATIO 4.36 (<5); CREATININE FOR GFR 0.88 MG/DL (0.55-1.30); GLOMERULAR FILTRATION RATE > 60.0 (>58); GLUCOSE, FASTING 109 MG/DL (60-100); HDL CHOLESTEROL 60.7 MG/DL (>40); LDL CHOLESTEROL 175.7 MG/DL (<100); NON-HDL-C 204.3 MG/DL; POTASSIUM SERUM 4.7 MMOL/L (3.5-5.1); SODIUM LEVEL 141 MMOL/L (136-145); TOTAL PROTEIN 7.7 G/DL (5.7-8.2); TRIGLYCERIDES LEVEL 143 MG/DL (<150)
[2023-12-26 18:06] LABS: THYROID STIMULATING HORMONE 1.992 uIU/ML (0.55-4.78)
== END ==
LOC: M SFHCCLAY 11:34
PROVIDERS: ATTEND Nurse Practitioner Family
DX: R60.0 Localized edema (principal); I10 Essential (primary) hypertension; F41.1 Generalized anxiety disorder; F07.81 Postconcussional syndrome; G43.909 Migraine, unspecified, not intractable, without status migrainosus

== ENCOUNTER → 2023-12-27 | Outpatient (REF) | payer BC ==
[2023-12-27 17:47] LABS: BASO % 0.4 % (0.0-1.0); EOS # 0.1 10^3/uL (0.0-0.5); EOS % 1.6 % (0.0-3.0); HEMATOCRIT 39.6 % (36.0-47.0); HEMOGLOBIN 12.8 g/dl (12.0-15.5); LYMPH % 22.3 % (24.0-44.0); MEAN CORPUSCULAR HEMOGLOBIN 30.8 pg (27.0-33.0); MEAN CORPUSCULAR HGB CONC 32.3 g/dl (32.0-36.5); MEAN CORPUSCULAR VOLUME 95.4 fl (80.0-96.0); MONO # 0.6 10^3/uL (0.0-0.8); NEUTROPHILS # 6.1 10^3/uL (1.5-8.5); NEUTROPHILS % 68.3 % (36.0-66.0); PLATELET COUNT, AUTOMATED 356 10^3/uL (150-450); RED BLOOD COUNT 4.15 10^6/uL (4.00-5.40); WHITE BLOOD COUNT 8.9 10^3/uL (4.0-10.0)
[2023-12-27 18:19] LABS: IRON (FE) 75 UG/DL (50-170)
[2023-12-27 18:20] LABS: PERCENT SATURATION 23.4 % (13.2-45.0); TOTAL IRON BINDING CAPACITY 321 UG/DL (250-425)
[2023-12-27 18:24] LABS: ALBUMIN 3.8 G/DL (3.2-5.2); ALKALINE PHOSPHATASE 113 U/L (46-116); ALT/SGPT 36 U/L (7.0-40); AST/SGOT 22 U/L (<34); BILIRUBIN,TOTAL 0.4 MG/DL (0.3-1.2); BLOOD UREA NITROGEN 12 MG/DL (9-23); CALCIUM LEVEL 9.6 MG/DL (8.5-10.1); CARBON DIOXIDE LEVEL 31 MMOL/L (20-31); CHLORIDE LEVEL 102 MMOL/L (98-107); CHOLESTEROL LEVEL 248 MG/DL (<200); CHOLESTEROL RISK RATIO 4.11 (<5); CREATININE FOR GFR 0.95 MG/DL (0.55-1.30); FERRITIN 62.2 NG/ML (7.3-270.7); FREE T4 1.25 NG/DL (0.89-1.76); GLOMERULAR FILTRATION RATE > 60.0 (>58); GLUCOSE, FASTING 108 MG/DL (60-100); HDL CHOLESTEROL 60.2 MG/DL (>40); LDL CHOLESTEROL 164.2 MG/DL (<100); NON-HDL-C 187.8 MG/DL; POTASSIUM SERUM 4.3 MMOL/L (3.5-5.1); SODIUM LEVEL 136 MMOL/L (136-145); THYROID STIMULATING HORMONE 1.756 uIU/ML (0.55-4.78); TOTAL 25(OH) VITAMIN D 77.4 NG/ML (20.0-100.0); TOTAL PROTEIN 7.1 G/DL (5.7-8.2); TRIGLYCERIDES LEVEL 118 MG/DL (<150); VITAMIN B12 LEVEL 509 PG/ML (211-911)
== END ==
LOC: M LABDRAWC 16:46
PROVIDERS: ATTEND Nurse Practitioner Family
DX: Z01.812 Encounter for preprocedural laboratory examination (principal); D51.9 Vitamin B12 deficiency anemia, unspecified; E55.9 Vitamin D deficiency, unspecified; E66.01 Morbid (severe) obesity due to excess calories

== ENCOUNTER 2024-01-26 09:45 | Emergency (ER) | payer BC ==
[~2024-01-26] VITALS: Ht 167.6 cm; Wt 113.6 kg
[2024-01-26 11:29] VITALS: BP 188/92; TEMP 98.3; O2SAT 96
== END 2024-01-26 11:29 | disposition home or self-care (01) ==
LOC: M ED 09:45
DX: S99.912A Unspecified injury of left ankle, initial encounter (principal); X50.1XXA Overexertion from prolonged static or awkward postures, initial encounter; Y92.410 Unspecified street and highway as the place of occurrence of the external cause; Y93.89 Activity, other specified; Y99.9 Unspecified external cause status; M32.9 Systemic lupus erythematosus, unspecified; Z79.899 Other long term (current) drug therapy; Z88.2 Allergy status to sulfonamides

== ENCOUNTER → 2024-03-07 | Outpatient (CLI) | payer BC | LOC: M CLY 14:35 | PROVIDERS: ATTEND Physician Assistant | DX: Z01.818 Encounter for other preprocedural examination (principal) ==

== ENCOUNTER → 2024-05-17 | Outpatient (CLI) | payer BC | LOC: M WHC 08:23 | PROVIDERS: ATTEND Physician Assistant Medical | DX: N20.0 Calculus of kidney (principal) ==

== ENCOUNTER → 2024-08-09 | Outpatient (CLI) | payer BC | LOC: M RAD 12:21 | PROVIDERS: ATTEND Physician Assistant Medical | DX: N20.0 Calculus of kidney (principal) ==

== ENCOUNTER → 2024-11-11 | Outpatient (CLI) | payer BC | LOC: M RAD 08:36 | PROVIDERS: ATTEND Urology | DX: N20.0 Calculus of kidney (principal) ==

== ENCOUNTER → 2024-12-12 | Outpatient (REF) | payer BC ==
[2024-12-12 18:34] LABS: ALT/SGPT 24.0 U/L (7.0-40); AST/SGOT 20.0 U/L (<34); CALCIUM LEVEL 9.2 MG/DL (8.5-10.1); CARBON DIOXIDE LEVEL 27.0 MMOL/L (20-31); CHLORIDE LEVEL 105.0 MMOL/L (98-107); CHOLESTEROL LEVEL 265.0 MG/DL (<200); CHOLESTEROL RISK RATIO 4.83 (<5); CREATININE FOR GFR 0.87 MG/DL (0.55-1.30); GLOMERULAR FILTRATION RATE 81.1 (>51); LDL CHOLESTEROL 146.8 MG/DL (<100); NON-HDL-C 210.2 MG/DL; POTASSIUM SERUM 4.7 MMOL/L (3.5-5.1); SODIUM LEVEL 143.0 MMOL/L (136-145); TRIGLYCERIDES LEVEL 317.0 MG/DL (<150)
[2024-12-12 18:53] LABS: ESTIMATED AVERAGE GLUCOSE 123.0 MG/DL (60-110)
== END ==
LOC: M SFHCCLAY 10:46
PROVIDERS: ATTEND Physician Assistant
DX: I10 Essential (primary) hypertension (principal); F07.81 Postconcussional syndrome; G43.909 Migraine, unspecified, not intractable, without status migrainosus; F41.1 Generalized anxiety disorder; R73.03 Prediabetes

== ENCOUNTER → 2025-01-10 | Outpatient (CLI) | payer BC | LOC: M WHC 09:12 | PROVIDERS: ATTEND Physician Assistant | DX: Z12.31 Encounter for screening mammogram for malignant neoplasm of breast (principal); R92.323 Mammographic fibroglandular density, bilateral breasts ==

== ENCOUNTER → 2025-01-30 | Outpatient (CLI) | payer BC | LOC: M SOG 07:25 | PROVIDERS: ATTEND Orthopaedic Surgery | DX: M25.571 Pain in right ankle and joints of right foot (principal) ==

== ENCOUNTER → 2025-03-05 | Outpatient (CLI) | payer BC | LOC: M PLAIMG 08:37 | PROVIDERS: ATTEND Orthopaedic Surgery | DX: S86.311A Strain of muscle(s) and tendon(s) of peroneal muscle group at lower leg level, right leg, initial encounter (principal); W18.30XA Fall on same level, unspecified, initial encounter; Y92.009 Unspecified place in unspecified non-institutional (private) residence as the place of occurrence of the external cause ==

== ENCOUNTER → 2025-03-31 | Outpatient (CLI) | payer BC | LOC: M RAD 15:29 | PROVIDERS: ATTEND Physician Assistant Medical | DX: N20.0 Calculus of kidney (principal) ==